=== PATIENT | female | born 1950 | race Caucasian/White ===

== ENCOUNTER 2016-12-27 02:03 | Inpatient (IN) | payer OTHER, MEDICARE ==
[~2016-12-27] VITALS: Ht 157.5 cm; Wt 56.8 kg
--- NOTE | 2016-12-27 07:23 | Admission Core Measures ---
Admission Meds I reviewed the following Meds: Current Medications Sig/Denise Start time Last Medication Dose Stop Time Status Admin Acetaminophen 975 MG ONCE 12/27 0000 NR (Tylenol) 12/27 2358 Cefazolin Sodium 2,000 MG ONCE 12/27 NR (Kefzol-Ancef Inj) 12/27 2358 Oxycodone HCl 10 MG ONCE 12/27 0000 NR (Roxicodone) 12/27 2358 Acute Coronary Syndrome Inclusion Criteria ACS Diagnosis No Inpatient Core Measures LDL Reminder: If No, please order W/I first 24hr of stay Congestive Heart Failure Inclusion Criteria CHF Diagnosis No Cerebrovascular accident Inclusion Criteria CVA/TIA Diagnosis No Inpatient Core Measures Bedside Swallow Eval Reminder: If BSE failed, place ST order Antithrombotic Reminder: Order Antithrombotic Medication by end of day 2 Antithrombotic Reminder: Document Reason Antithrombotic Not ordered by end of day 2 AFIB/Flutter Reminder: If Present, add to problem list AFIB/Flutter Reminder: Order Anticoag Medication for pts with AFIB/Flutter Atherosclerosis Reminder: If Present, add to problem list LDL Reminder: If No, please order W/I first 24hr of stay PT Order Reminder: If No, please order Venous thromboembolism Inpatient Core Measures VTE Risk Factors: [facility] prophylaxis d/t No contraindications No VTE Pharm Prophylaxis d/t No contraindications Inclusion Criteria - Per Current guidelines, there needs to be overlap - treatment for the first 5 days of Warfarin therapy. - Parenteral Anticoagulation (IV or SC) needs to be - given along with Warfarin therapy. VTE Diagnosis No VTE Type NONE VTE Confirmed by (Test) NONE Problem List As ranked by this Provider includes Assessment & Plan 1. Primary osteoarthritis of right hip
[2016-12-27] MEDS ORDERED: COLACE100 M1 PO (10:41)
[2016-12-27] MEDS ORDERED: PROTONIX20 M1 PO (10:41)
[2016-12-27] MEDS ORDERED: ASPIRIN EC325 M2 PO (10:41)
[2016-12-27] MEDS ORDERED: DILAUDID2 M1 PO (10:41)
[2016-12-27] MEDS ORDERED: MIRALAX17 G1 PO (10:41)
[2016-12-27] MEDS ORDERED: MS CONTIN15 M2 PO (10:41)
--- NOTE | 2016-12-27 10:46 | Patient Discharge Instructions ---
Discharge Instructions General Discharge Information You were seen/treated for: RIGHT hip pain You had these procedures: Total hip replacement, RIGHT Watch for these problems: Increasing pain despite the use of pain medication Increasing redness, warmth or swelling Drainage of any type from incision Inability to bear weight on operative leg Persistent nausea and vomiting Fever greater than 101.5 degrees No bath, but you may shower: Yes Other wound care: Please keep wound clean and dry. No ointments or lotions of any type on or near incision at any time. No exceptions. Your dressing will be changed by your nurse on the second day after your surgery. Daily dry dressing changes are recommended each day thereafter. Do not soak your wound in a bath at any time until otherwise indicated by Dr. Goodman. You may shower, please dry wound immediately after shower with a clean towel. Special Instructions: Aspirin: You are taking this medication to help prevent blood clot formation. Please take with food to protect your stomach lining. Please take as directed. Protonix: Take this daily to protect your stomach lining while taking aspirin. Constipation: Pain medication can cause constipation. Dr. Goodman has recommended that you take Colace and miralax each day. You may discontinue this medication if you develop loose stool or diarrhea. If you wish to continue this medication, it is available over the counter. If you are unable to move your bowels after several days, if you are unable to pass gas and are developing bloating, nausea, or vomiting as a result, please contact your doctor. Diet Continue normal diet: Yes Activity Activity Limited to: Weight bear as tolerated Other activity limits: use assistive devices as needed Acute Coronary Syndrome Inclusion Criteria At DC or during hospital stay patient has or had the following: ACS DIAGNOSIS No Discharge Core Measures Meds if any: Prescribed or Continued at Discharge Meds if any: NOT Prescribed or Continued at Discharge Congestive Heart Failure Inclusion Criteria At DC or during hospital stay patient has or had the following: CHF DIAGNOSIS No Discharge Core Measures Meds if any: Prescribed or Continued at Discharge Meds if any: NOT Prescribed or Continued at Discharge Cerebrovascular accident Inclusion Criteria At DC or during hospital stay patient has or had the following: CVA/TIA Diagnosis No Discharge Core Measures Meds if any: Prescribed or Continued at Discharge Meds if any: NOT Prescribed or Continued at Discharge Venous thromboembolism Inclusion Criteria VTE Diagnosis No VTE Type NONE VTE Confirmed by (Test) NONE Discharge Core Measures - Per Current guidelines, there needs to be overlap - treatment for the first 5 days of Warfarin therapy. - If discharged on Warfarin prior to 5 days of - overlap therapy, the patient will need to be - assessed for post discharge needs including - *Post discharge parental anticoagulation - *Warfarin and/or parental anticoagulation education - *Follow up date to check INR post discharge At least 5 days overlap therapy as Inpatient No Meds if any: Prescribed or Continued at Discharge Note: Overlap Therapy is Warfarin and Anticoagulant Meds if any: NOT Prescribed or Continued at Discharge
--- NOTE | 2016-12-27 11:38 | RADIOLOGY REPORT ---
EXAMINATION: XR HIP, RIGHT CLINICAL INFORMATION: Status post total hip replacement. COMPARISON: No relevant prior imaging available. TECHNIQUE: Two views of the right hip. FINDINGS: There are recent postoperative changes of a right total hip arthroplasty. The metallic components of the hip are intact and there is no dislocation. No evidence of periprosthetic fracture. Scattered foci of soft tissue gas and swelling are consistent with recent surgery. Visualized portions of the right hemipelvis are unremarkable. IMPRESSION: Expected postoperative changes of a right total hip arthroplasty. Otherwise no acute finding.
[2016-12-27 13:26] VITALS: BP 134/80
--- NOTE | 2016-12-27 14:01 | NUR ---
PATIENT ARRIVED TO FLOOR AT 1310 FROM PACU, S/P R TOTAL HIP VS 97.6 59 18 134/80 98% ROOM AIR; A&OX3, NORMALLY INDEPENDENT; DSG TO R HIP CDI, ICE BRYANNA IN PLACE; NO C/O PAIN; IV #20 TO LH WITH D5 1/2 NS @ 75 ML/HR RUNNING; POSSIBLE D/C HOME TODAY; SAFETY MAINTAINED, NEEDS WITHIN REACH; AWAITING PT CLEARANCE, TOLERATING LUNCH AND VOIDING BEFORE D/C. ORIENTED TO ROOM AND CALL DIAS.
--- NOTE | 2016-12-27 15:04 | PN- Orthopedic ---
Subjective Subjective: pain well controlled, [place] diet, no cp/sob/n/v. oob with pt- cleared for home dc. incontinent of urine x1 (no history). Objective Vital Signs and I&Os Vital Signs Date Time Temp Pulse Resp B/P B/P Pulse O2 O2 Flow FiO2 Mean Ox Delivery Rate 12/27 1326 97.6 59 18 134/80 98 Room Air Intake & Output 12/27 1600 12/27 0800 12/27 0000 12/26 1600 12/26 0800 12/26 0000 Intake Total Output Total Balance Patient 125 lb Weight Weight Reported by Patient Measurement Method Physical Exam: GEN:NAD CARD: s1s2 RRR PULM: CTAB ABD: soft nt EXT: R hip incision CDI, nt, gross sensation intact, gross motor intact, +pedal pulses, feet warm, calves soft nt bl Assessment/Plan Assessment/Plan A: POD0 sp R JESSICA, with urinary incontinence postop, likeyl related to spinal anesthesia, otherwise stable. P: OOB, PT, WBAT ASA bid prn pain meds Await return normal urinary fxn reg diet as tolerated, HL once tolerates DC planning will dw attending Core Measures/Miscellaneous Venous Thromboembolism VTE Risk Factors: Surgery VTE Contraindications: No Contraindications VTE Diagnosis: No VTE Type: NONE VTE Confirmed by (Test): NONE Beta Ihsan Is Beta Ihsan a Home Med? No Antibiotics Is Patient on Antibiotics? Yes If Yes: prophylaxis
--- NOTE | 2016-12-27 15:56 | NUR ---
PT HAS HAD 2 EPISODES OF INCONTINENCE WHEN AMBULATING. C/O NUMBNESS TO LEG. WAS ABLE TO VOID A SMALL AMOUNT MORE ONCE IN BATHROOM. INFORMED PATIENT NUMBNESS WILL JUST HAVE TO WEAR OFF, AND CANNOT BE DISCHARGED UNTIL SHE VOIDS APPROPRIATELY, PER SX JONY BAEZ.
--- NOTE | 2016-12-27 17:47 | Operative Report ---
Operative/Inv Procedure Report Surgery Date: 12/27/16 Name of Procedure: Right total hip replacement Pre-Operative Diagnosis: Primary right hip DJD Post-Operative Diagnosis: Same Estimated Blood Loss: 250 Surgeon/Geology Instructor: TERRY DESAI,LAZARO Romero Anesthesia: block Operative/Procedure Note Note: Description of Procedure: The patient was taken to the operating room and positively identified. After induction of spinal anesthesia and administration of appropriate pre-operative antibiotics, the patient was positioned supine on the operating room table and all bony prominences were well padded. After performing a surgical timeout, the right lower extremity was prepped and draped in the usual sterile fashion. A direct anterior approach was made to the right hip. The incision was carried sharply through superficial soft tissues to the level of the fascia. Meticulous hemostasis was maintained with Bovie electocautery. The fascia over the tensor fascia edie muscle was opened sharply and the interval between the TFL and the sartorius was entered bluntly taking care to stay lateral to the lateral femoral cutaneous nerve. Retractors were placed around the femoral neck and the pericapsular fat was identified. The ascending branches of the lateral femoral circumflex vessels were identified and carefully coagulated. The pericapsular fat and anterior capsule were then resected. A napkin ring osteotomy was performed and the femoral head was removed without difficulty. Attention was then turned to the acetabulum. After appropriate placement of retractors, the acetabulum was exposed. Soft tissue was cleaned from the acetabular margin and notch. Overhanging osteophytes were removed and the teardrop was exposed. The acetabulum was then sequentially reamed to accept a 52 mm [place] Tritanium hemispherical solid back shell. This was impacted into place in the appropriate position and fitted with a 32 mm Trident X3 zero degree polyethylene insert. Attention was then turned to the femur. After performing the appropriate ligament releases, the proximal femur was exposed. It was then sequentially broached to accept a size 7 [place] secure fit advanced 132 stem. This was trialed for leg length and stability. The trial component was removed and the final component was impacted into place. The trunnion was carefully cleaned and fit with a 32 mm, +4 Biolox delta ceramic femoral head. The hip was reduced and put through a full range of motion and found to be stable. The articular space was then irrigated with sterile saline. The periarticular soft tissues were infilitrated with Marcaine. The fascial layer was closed with interrupted #1 vicryl suture and the skin was re-approximated with interrupted 2 -0 vicryl. The skin was closed with a running 3-0 V-Lock suture. Steri-strips and a sterile dressing were applied. The patient was awakened and taken to the recovery room in satisfactory condition.
== END 2016-12-27 18:57 | disposition home health service (06) | DRG 470 ==
LOC: SDA 02:03 → ENRESERV 12:09 → ENTRNSPT 12:26 → EDTRNSPT 13:01 → EDTRNSPTSTS 13:01 → 2NB 13:07 → CMPTRNSPT 13:28 → 2NB 18:57
PROVIDERS: ADMIT Orthopaedic Surgery
PROC: 0SR904A Replacement of Right Hip Joint with Ceramic on Polyethylene Synthetic Substitute, Uncemented, Open Approach (ICD-10-PCS; principal; 2016-12-27)
DX: M16.11 Unilateral primary osteoarthritis, right hip (principal); R32 Unspecified urinary incontinence; T41.3X5A Adverse effect of local anesthetics, initial encounter
CPT/HCPCS: 2NBP; 73502-RT; 97110-GO; 97116-GO; 97161-GP; J0690; J0735; J2405; J2550; J7042

== ENCOUNTER 2017-10-24 04:04 | Inpatient (IN) | payer OTHER, MEDICARE ==
[~2017-10-24] VITALS: Ht 157.5 cm; Wt 56.5 kg
[~2017-10-24 04:04] MED LIST: ASPIRIN EC325 M2 PO; COLACE100 M1 PO; DILAUDID2 M1 PO; MIRALAX17 G1 PO; MS CONTIN15 M2 PO; PROTONIX20 M1 PO
--- NOTE | 2017-10-24 09:58 | RADIOLOGY REPORT ---
EXAMINATION: XR HIP, LEFT CLINICAL INFORMATION: Status post left total hip replacement COMPARISON: None TECHNIQUE: AP and crosstable lateral views of the left hip in the PACU. of the left hip. FINDINGS: Examination reveals the total hip replacement to be in the normally expected position. There are no complications. No fracture or dislocation is seen. On the shoot through crosstable lateral view, the distal tip of the femoral component is not included on the exam. Soft tissue air is present as to be expected. No calcifications are seen. IMPRESSION: Status post left hip replacement. No complications.
--- NOTE | 2017-10-24 10:11 | Admission Core Measures ---
Acute Coronary Syndrome (CM) ACS Core Measures Acute Coronary Syndrome Diagnosis No Congestive Heart Failure (NEW) CHF Core Measures Congestive Heart Failure Diagnosis No Cerebrovascular Accident (NEW) CVA Core Measures CVA/TIA Diagnosis No Venous Thromboembolism VTE Core Bryant (View Protocol) VTE Risk Factors Surgery No Mechanical VTE Prophylaxis d/t N/A MechProphylax Ordered No VTE Pharm Prophylaxis d/t NA PharmProphylax ordered Problem List As ranked by this Provider includes Assessment & Plan 1. Unilateral primary osteoarthritis, left hip HOME MEDS Home Med List No Known Home Medications
[2017-10-24] MEDS ORDERED: PRILOSEC OTC20 M1 PO (10:22)
[2017-10-24] MEDS ORDERED: MS CONTIN15 M3 PO (10:22)
[2017-10-24] MEDS ORDERED: MIRALAX17 G1 PO (10:22)
[2017-10-24] MEDS ORDERED: COLACE100 M1 PO (10:22)
[2017-10-24] MEDS ORDERED: DILAUDID2 M1 PO (10:22)
[2017-10-24] MEDS ORDERED: ASPIRIN EC81 M1 PO (10:22)
--- NOTE | 2017-10-24 10:25 | Patient Discharge Instructions ---
Discharge Instructions General Discharge Information You were seen/treated for: Left hip pain related to unilateral primary osteoarthritis You had these procedures: Left total hip replacement Watch for these problems: Increasing pain despite the use of pain medication Increasing redness, warmth or swelling Drainage of any type from incision Inability to bear weight on operative leg Persistent nausea and vomiting Fever greater than 101.5 degrees Do not soak the wound: Yes No bath, but you may shower: Yes Other wound care: Please keep wound clean and dry. No ointments or lotions of any type on or near incision at any time. No exceptions. Your dressing will be changed by your nurse on the second day after your surgery. Daily dry dressing changes are recommended each day thereafter. Do not soak your wound in a bath at any time until otherwise indicated by your surgeon. You may shower, please dry wound immediately after shower with a clean towel. Special Instructions: Aspirin: You are taking this medication to help prevent blood clot formation. Please take with food to protect your stomach lining. Please take as directed. Constipation: Pain medication can cause constipation. Dr. Goodman has recommended that you take Colace and miralax each day. You may discontinue this medication if you develop loose stool or diarrhea. If you wish to continue this medication, it is available over the counter. If you are unable to move your bowels after several days, if you are unable to pass gas and are developing bloating, nausea, or vomiting as a result, please contact your doctor. Diet Continue normal diet: Yes Recommended Diet: Regular Activity Full Activity/No Limits: No Activity Self Limited: Yes Pounds, do NOT lift more than: 5 Activity Limited to: Weight bear as tolerated Other activity limits: use knee immobilizer on operative leg (left leg) with ambulation until further directed Acute Coronary Syndrome Inclusion Criteria At PR or during hospital stay patient has or had the following: ACS DIAGNOSIS No Discharge Core Measures Meds if any: Prescribed or Continued at Discharge Meds if any: NOT Prescribed or Continued at Discharge Congestive Heart Failure Inclusion Criteria At DC or during hospital stay patient has or had the following: CHF DIAGNOSIS No Discharge Core Measures Meds if any: Prescribed or Continued at Discharge Meds if any: NOT Prescribed or Continued at Discharge Cerebrovascular accident Inclusion Criteria At DC or during hospital stay patient has or had the following: CVA/TIA Diagnosis No Discharge Core Measures Meds if any: Prescribed or Continued at Discharge Meds if any: NOT Prescribed or Continued at Discharge Venous thromboembolism Inclusion Criteria VTE Diagnosis No VTE Type NONE VTE Confirmed by (Test) NONE Discharge Core Measures - Per Current guidelines, there needs to be overlap - treatment for the first 5 days of Warfarin therapy. - If discharged on Warfarin prior to 5 days of - overlap therapy, the patient will need to be - assessed for post discharge needs including - *Post discharge parental anticoagulation - *Warfarin and/or parental anticoagulation education - *Follow up date to check INR post discharge At least 5 days overlap therapy as Inpatient No Meds if any: Prescribed or Continued at Discharge Note: Overlap Therapy is Warfarin and Anticoagulant Meds if any: NOT Prescribed or Continued at Discharge
--- NOTE | 2017-10-24 10:27 | Surgical Discharge Summary ---
Visit Information Visit Dates Admission Date: 10/24/17 Discharge Date: 10/24/17 History of Present Illness Chief Complaint: Left hip pain related to unilateral primary osteoarthritis Medical History Neurological: NONE EENT: NONE Cardiovascular: NONE Respiratory: NONE Gastrointestinal: NONE Hepatic: NONE Renal: NONE Musculoskeletal: NONE Psychiatric: NONE Endocrine: NONE Blood Disorders: NONE Cancer(s): NONE HELP DESK SPECIALIST/Reproductive: NONE History of MRSA: No History of VRE: No History of CDIFF: No Isolation History: Standard Surgical History Pertinent Surgical History: appendectomy, TONSILECTOMY CERVICAL FUSION R TOTAL HIP Psychosocial History Who Do You Live With? Significant Other What is Your Primary Language? Swedish Review of Systems: See H&P Hospital Course Course Attending Physician: Benjy Goodman MD Primary Care Physician: Dax Mckeon MD Hospital Course: Patient was admitted to the hospital for an elective total joint replacement. The procedure was tolerated well and patient was transferred to a general surgical floor. Diet was advanced and tolerated.. The patient was evaluated and treated by physical therapy. PT felt as though the patient had some knee buckling on her operative extremity while walking. She demonstrated weak knee extension on her operative leg versus nonoperative leg. This was discussed with , who recommends a knee immobilizer on her operative leg to use with ambulation. She is still eager to go home, and will be calling her tomorrow to see how things are going. Complications: None Allergies: Coded Allergies: No Known Allergies (10/19/17) Disposition Summary Disposition Principal Diagnosis: Left hip unilateral primary osteoarthritis Additional Diagnosis: None Discharge Disposition: home health services Discharge Instructions General Discharge Information Code Status: Full Code Patient's Diet: Regular, advance as tolerated Patient's Activity: WBAT with knee immobilizer on her operative extremity (left leg) Follow-Up Instructions/Appts: Follow up with Dr. Goodman in 6 weeks from date of surgery. Please call office to arrange &/or confirm this appointment. Medications at Discharge Discharge Medications: Start taking the following new medications: Morphine Sulfate (Ms Contin) 15 MG TABLET.ER 1 Tablet ORAL TWICE DAILY Qty = 4 No Refills Hydromorphone HCl (Dilaudid) 2 MG TABLET 1-2 Tablet ORAL EVERY 4-6 HOURS NEEDED as needed for PAIN Qty = 36 No Refills Aspirin (Ecotrin*) 81 MG TABLET.DR 1 Tablet ORAL TWICE DAILY Qty = 60 No Refills Docusate Sodium (Colace) 100 MG CAPSULE 1 Capsule ORAL TWICE DAILY Qty = 14 No Refills Instructions: DISCONTINUE USE IF YOU DEVELOP LOOSE STOOL OR DIARRHEA Polyethylene Glycol 3350 (Miralax) 17 GRAM POWD.PACK 1 Packet ORAL DAILY Qty = 7 No Refills Instructions: dissolve in water, DISCONTINUE USE IF YOU DEVELOP LOOSE STOOL OR DIARRHEA Omeprazole Magnesium (Prilosec Otc) 20 MG TABLET. 1 Tablet ORAL DAILY Qty = 30 No Refills Copies To: Mike DESAI,Dax Chaudhari
[2017-10-24 13:05] VITALS: BP 140/80
[2017-10-24 15:00] VITALS: BP 122/70
--- NOTE | 2017-10-24 15:17 | Operative Report ---
Operative/Inv Procedure Report Surgery Date: 10/24/17 Name of Procedure: Left total hip replacement Pre-Operative Diagnosis: Primary left hip DJD Post-Operative Diagnosis: Same Estimated Blood Loss: 250 Surgeon/Health Education Specialist: Maxine DESAI,Benjy Lopez Anesthesia: block Operative/Procedure Note Note: Description of Procedure: The patient was taken to the operating room and positively identified. After induction of spinal anesthesia and administration of appropriate pre-operative antibiotics, the patient was positioned supine on the operating room table and all bony prominences were well padded. After performing a surgical timeout, the left lower extremity was prepped and draped in the usual sterile fashion. A direct anterior approach was made to the left hip. The incision was carried sharply through superficial soft tissues to the level of the fascia. Meticulous hemostasis was maintained with Bovie electocautery. The fascia over the tensor fascia edie muscle was opened sharply and the interval between the TFL and the sartorius was entered bluntly taking care to stay lateral to the lateral femoral cutaneous nerve. Retractors were placed around the femoral neck and the pericapsular fat was identified. The ascending branches of the lateral femoral circumflex vessels were identified and carefully coagulated. The pericapsular fat and anterior capsule were then resected. A napkin ring osteotomy was performed and the femoral head was removed without difficulty. Attention was then turned to the acetabulum. After appropriate placement of retractors, the acetabulum was exposed. Soft tissue was cleaned from the acetabular margin and notch. Overhanging osteophytes were removed and the teardrop was exposed. The acetabulum was then sequentially reamed to accept a 52 mm [place] Tritanium hemispherical solid shell. This was impacted into place in the appropriate position and fitted with a 32 mm Trident X3 zero degree polyethylene insert. Attention was then turned to the femur. After performing the appropriate ligament releases, the proximal femur was exposed. It was then sequentially broached to accept a size #4 [place] Accolade II stem. This was trialed for leg length and stability. The trial component was removed and the final component was impacted into place. The trunnion was carefully cleaned and fit with a 32 mm, +0 Biolox delta ceramic femoral head. The hip was reduced and put through a full range of motion and found to be stable. The articular space was then irrigated with sterile saline. The periarticular soft tissues were infilitrated with Marcaine. The fascial layer was closed with interrupted #1 vicryl suture and the skin was re-approximated with interrupted 2 -0 vicryl. The skin was closed with a running 3-0 V-Lock suture. Steri-strips and a sterile dressing were applied. The patient was awakened and taken to the recovery room in satisfactory condition.
--- NOTE | 2017-10-24 16:47 | PN- Orthopedic ---
Subjective Subjective: POST-OP NOTE No complaints. Reports her left knee buckled during ambulation more than once. She feels like her sensation has completely returned. No dizziness. No shortness of breath. No chest pains. Voided without difficulty. Tolerating diet. She is eager to go home today. Objective Vital Signs and I&Os Vital Signs Date Time Temp Pulse Resp B/P B/P Pulse O2 O2 Flow FiO2 Mean Ox Delivery Rate 10/24 1500 96.5 63 20 122/70 99 Room Air 10/24 1305 97.4 58 18 140/80 98 Room Air Intake & Output 10/24 1600 10/24 0800 10/24 0000 10/23 1600 10/23 0000 Intake Total 295 Output Total 500 Balance -205 Intake, IV 175 Intake, Oral 120 Output, Urine 500 Patient 124 lb Weight Weight Standing Scale Measurement Method Physical Exam: General - alert & oriented x 3. out of bed to chair. comfortable. Lungs - clear bilaterally. no w/r/r. Cardiac - s1s2. reg. Abdomen - soft. nontender. Extremities - warm bilaterally. left hip dressing c/d/i. no drains. no hematoma. calves soft and nontender b/l. sensation equal, grossly intact in b/l lower legs. unable to do full knee extension with her left leg. weaker DF / PF left leg compared to right leg. Current Medications: Current Medications Sig/Denise Start time Last Medication Dose Route Stop Time Status Admin Acetaminophen 1,000 MG Q6 10/24 1200 AC 10/24 IV 10/25 0601 1351 Acetaminophen 0 .STK-MED ONE 10/24 0727 DC PO Acetaminophen 975 MG ONCE 10/24 0000 DC PO 10/24 235 Acetaminophen 975 MG ONCE 10/23 0000 DC PO 10/23 235 Aspirin Buffered 81 MG BID 10/24 2100 AC PO Cefazolin Sodium 2 GM IQ8 10/24 1600 AC 10/24 N/A 1 UNIT IV 10/25 0029 1641 Cefazolin Sodium 2,000 MG ONCE 10/24 0000 DC IV 10/24 235 Dextrose/Sodium 1,000 ML .[id number] 10/24 1315 AC 10/24 Chloride IV 1352 Docusate Sodium 100 MG BID 10/24 2100 AC PO Hydromorphone HCl 2 MG Q4P PRN 10/24 1315 AC PO Hydromorphone HCl 4 MG Q4P PRN 10/24 1315 AC PO Ketorolac 15 MG Q8P PRN 10/24 1315 AC Tromethamine IV 10/27 1310 Midazolam HCl 4 MG .STK-MED ONE 10/25 703 DC IM 10/24 07 Morphine Sulfate 2 MG Q2P PRN 10/24 1315 AC IV Omeprazole 40 MG DAILY AC 10/25 07 AC PO Ondansetron HCl 4 MG Q6P PRN 10/24 1315 AC IV Oxycodone HCl 0 .STK-MED ONE 10/24 0727 DC PO Oxycodone HCl 10 MG ONCE 10/24 0000 DC PO 10/24 2359 Polyethylene Glycol 17 GM DAILY 10/25 899 AC PO Promethazine HCl 12.5 MG Q6P PRN 10/24 1315 AC IV 10/31 1014 Tranexamic Acid 2,000 MG .STK-MED ONE 10/25 703 DC IV 10/24 704 Assessment/Plan Assessment/Plan This 67 year old female with hx primary hip DJD is POD#0 s/p left total hip replacement, who has had some knee buckling while walking and weak left knee extension tolerating diet pain controlle asa bid - 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 not needed in bed discussed above with Core Measures Venous Thromboembolism VTE Risk Factors Surgery No Mechanical VTE Prophylaxis d/t N/A MechProphylax Ordered No VTE Pharm Prophylaxis d/t NA PharmProphylax ordered
== END 2017-10-24 17:53 | disposition home health service (06) | DRG 470 ==
LOC: SDA 04:04 → ENRESERV 12:17 → ENTRNSPT 12:26 → EDTRNSPT 12:52 → EDTRNSPTSTS 12:52 → 2NB 13:02 → CMPTRNSPT 13:15 → ENTRNSPT 17:44 → EDTRNSPTSTS 17:49 → 2NB 17:53 → CMPTRNSPT 18:07
PROC: 0SRB04A Replacement of Left Hip Joint with Ceramic on Polyethylene Synthetic Substitute, Uncemented, Open Approach (ICD-10-PCS; principal; 2017-10-24)
DX: M16.12 Unilateral primary osteoarthritis, left hip (principal); Z96.641 Presence of right artificial hip joint; Z98.1 Arthrodesis status
CPT/HCPCS: 2NBSP; 73502-LT; 97110-GO; 97116-GO; 97161-GP; J0131; J0690; J0735; J2550; J3490; J7042